=== PATIENT | male | born 1955 | race Caucasian/White ===

== ENCOUNTER 2017-03-11 09:41 | Inpatient (IN) | payer OTHER ==
[~2017-03-11] VITALS: Ht 172.7 cm; Wt 112.9 kg
--- NOTE | ~2017-03-11 | HC ---
[facility] [place] [address] CONSULTATION Name: ALIZA AKERS Room #: 419-P [facility] IN M.R.#: [id number] Admission: 03/11/17 Attend Phys: Coy Lema MD Discharge: Date of : 53 Report #: [id number] THIS REPORT FOR: //name// CC: Tai Lema REASON FOR CONSULTATION: Elevated creatinine. REASON FOR PRESENTATION: Weakness and tremor. HISTORY OF PRESENT ILLNESS: The patient is a 62-year-old with past medical history of diabetes mellitus and hypertension, coronary artery disease status post 8 stents as he stated. He is also known to have bipolar disorder and maintained on numerous medications. He does not really know what his baseline kidney function is. However, he tells me that he has been in [facility] facility for tremor and was told that he had some acute kidney injury. He was discharged after resolution of his acute kidney injury despite the fact that he continues to have tremor. He is not able to provide me with further details about that hospitalizations and no records are available. He has been diabetic for 16 years. He does not recall that he had diabetic retinopathy; however, he does have diabetic neuropathy. He is maintained on an angiotensin receptor belkys. He is also maintained on prednisone for unclear reasons to me. He was visiting with his primary care physician yesterday and while getting out of his clinic, he started to have weakness, diffuse body tremor, and was helped by the nursing aides to come to the emergency room for further evaluation and management. Initial laboratory values on presentation revealed that his creatinine was 2.2 with unknown baseline as I have stated. I am being consulted to manage his kidney injuries. The last creatinine we have in our system here was back in 2014 and this was at 1.4. PAST MEDICAL HISTORY: 1. Diabetes mellitus. 2. Hypertension. 3. Coronary artery disease. 4. Tremor. 5. Bipolar disorder. 6. Peripheral diabetic neuropathy. 7. Hyperlipidemia. 8. Chronic pain. PAST SURGICAL HISTORY: 1. Cholecystectomy. 2. Thyroidectomy. 3. Right shoulder surgery. 4. Left knee replacement. 5. Multiple caths. [facility] [address] [place] [address] CONSULTATION Name: ALIZA AKERS Room #: 419-P [facility] IN ..#: [id number] Admission: 03/11/17 Attend Phys: Coy Lema MD Discharge: Date of : 53 Report #: [id number] ALLERGIES: PENICILLIN. SOCIAL HISTORY: He denies drug or alcohol abuse. He is a former smoker. He quit about a year ago. FAMILY HISTORY: Significant for hypertension and diabetes mellitus in both parents. MEDICATIONS: Reported medications include the followin. Plavix. 2. Ranexa. 3. Aspirin. 4. Carvedilol. 5. Lasix. 6. Lyrica. 7. Seroquel. 8. Imdur. 9. Depakote. 10. Atorvastatin. 11. Allopurinol. 12. Fenofibrate. 13. Insulin. 14. Losartan. 15. Prednisone. 16. Pantoprazole. 17. Promethazine. 18. Flomax. REVIEW OF SYSTEMS: GENERAL: No fever or chills. CARDIOVASCULAR: No chest pain or palpitation. PULMONARY: No cough or hemoptysis. GASTROINTESTINAL: As per the history of present illness. GENITOURINARY: As per the history of present illness. NEUROLOGIC: As per the history of present illness. PHYSICAL EXAMINATION: GENERAL: He is alert, oriented, in no apparent distress. VITAL SIGNS: Blood pressure 129/66. NEUROLOGIC: He has tremor all over including upper extremities and lower extremities. HEAD AND NECK: No jugular venous distention, no bruit, no thyromegaly. CHEST: Clear to auscultation bilaterally. CARDIOVASCULAR: Regular with no rub detected. ABDOMEN: Soft, nontender with no hepatosplenomegaly. Bladder is not felt. EXTREMITIES: Lower extremities, no edema. [address] [address] CONSULTATION Name: ALIZA AKERS Room #: 419-P [facility] IN [facility]#: [id number] Admission: 03/11/17 Attend Phys: Coy Lema MD Discharge: Date of : 53 Report #: [id number] LABORATORY VALUES: Reviewed. BUN is up to 54, creatinine is 2.7, blood sugar is 381. Phosphorous 4.6, albumin is 3.3. Hemoglobin 12.3. Urine not available. Ultrasound reviewed. There is an evidence of chronic medical renal disease with increased echogenicity. There is also some thinning of the cortices. ASSESSMENT, IMPRESSION, AND PLAN: 1. Chronic kidney disease. 2. Acute kidney injury. 3. Diabetes mellitus. 4. Hypertension. 5. Tremor. 6. Polypharmacy. 7. Worsening of the renal function this morning is due to Toradol, please try to avoid. 8. I will send appropriate acute kidney injury, chronic kidney disease workup. 9. Obtain his [facility] record. 10. Avoid nephrotoxins. 11. Evaluate urine protein to creatinine. 12. The patient is on numerous medications with significant polypharmacy issues and this needs to be addressed. 13. Strict input and output. 14. We will continue to follow along. <ELECTRONICALLY SIGNED> By: Jenna Carver MD 03/14/17 1505 [id number] 1227 Jenna Carver MD /nt
--- NOTE | ~2017-03-11 | CNG ---
[facility] [place] [address] CYTO-NONGYN REPORT PROCEDURE Name: OSWALD,SANJIV Shah Room #: 352-P ADM IN M.R.#: [id number] Admission: 03/11/17 Date of : 53 Discharge: Report #: [id number] Path Case #: [id number] CYTOPATHOLOGY REPORT COLLECTION DATE: 03/18/2017 RECEIVED DATE: 03/22/2017 SUBMITTING PHYS: Dr. Gamal Sebastian OTHER PHYS: Dr. Coy Galvez CLINICAL HISTORY: ARF, hyperkalemia, tremors, bronchitis SPECIMEN(S) RECEIVED: A.Sputum Cytology * * * * * * * * * * * * FINAL DIAGNOSIS: A. Sputum Cytology: - No malignant epithelial cells identified. Rare pulmonary macrophages and occasional normal squamous epithelial cells present amongst abundant acute inflammatory cells. PATHOLOGIST: Chelsey Rodrigues M.D. REPORT ELECTRONICALLY SIGNED BY: Chelsey Rodrigues M.D. DATE/TIME: 03/23/2017 12:12 * * * * * * * * * * * * GROSS PATHOLOGY: A. Sputum Cytology: The specimen is submitted unfixed, labeled "Sanjiv Akers". Received by the Cytology Department is three mL of cloudy caruso fluid. One ThinPrep slide was prepared. (lg1.) DISTRIBUTOR CLEANER(S): DARBY Mcintosh(ASCP) INITIAL CPT CODE(S): A; 94811 Professional services performed by [facility] at [facility] [address], [place] [address] Technical services performed by [facility] at [address] [place] [address]., [address], [place] [address]. [facility] [address] [place] [address], [facility] [[email or web address] [address] [place], [place] [address] [place] [address] [place] [address] CYTO-NONGYN REPORT PROCEDURE Name: SANJIV AKERS Room #: 352-P ADM IN M.R.#: [id number] Admission: 03/11/17 Date of : 53 Discharge: Report #: [id number] Path Case #: [id number] PHONE: [phone] DIRECTOR: Pk Buckley M.D. * * * END OF REPORT * * *
--- NOTE | ~2017-03-11 | HC ---
[facility] [place] [address] CONSULTATION Name: OSWALDALIZA Pablo Room #: 419-P [facility] IN M.R.#: [id number] Admission: 03/11/17 Attend Phys: Coy Lema MD Discharge: Date of : 53 Report #: [id number] THIS REPORT FOR: //name// CC: Tai Lema DATE OF SERVICE: 03/13/2017 HISTORY OF PRESENT ILLNESS: This is a 62-year-old male patient who was seen by me yesterday as well as today. This is a combined note. The patient's neurological consult was requested because of tremor. History is somewhat poorly defined in this patient, but it looks like he has this tremor going on for at least a few months. He has been to [facility] and [facility] and he saw a neurologist there. He does not know what the diagnosis was and what treatment they recommended. This tremor is severe. It is predominantly involving both lower extremities. It happens when he tries to stand up. When is sitting down, he is okay. He does not know any other aggravating or relieving factor. This tremor has started without any factors like head trauma, etc. REVIEW OF SYSTEMS: Pretty extensive in this patient. This patient had a cardiac stent put in. He has a history of diabetes and hypertension. He indicates he cannot have an MRI because he has a metal stuck in his eye. He has a history of bipolar disorder. He does not think any medication make it worse. He has been admitted this time with renal problem. He has a history of shortness of breath. He also says that he has a history of DVT. He is being followed by [facility], but he is not sure whether his tremor is any worse than it was before the renal problem started. This was his relevant 14-point review of system. PAST MEDICAL HISTORY: Positive for coronary artery disease. FAMILY HISTORY: Negative for any Parkinson disease the best I can tell. SOCIAL HISTORY: Indicated he does not smoke or drink alcohol. PHYSICAL EXAMINATION: The patient's examination was carried out yesterday and today. The patient is alert and responsive. He can follow simple command. He is oriented. He believes his speech, concentration, fund of knowledge and memory is at baseline. Cranial nerve examination 2-12 looks unremarkable. He has symmetrical strength, sensation, reflexes and tone in all four extremities. His reflexes are diminished, but that is expected with diabetes. He does not appear to have much cerebellar sign, but he does have tremor, especially have he tries to sit up and especially in his legs. He does have some tremor in his arms also. He is a heavy set individual who does not have any dysmorphic features of eyes, ears and face. His hearing and vision looks adequate. He [facility] [address] [place] [address] CONSULTATION Name: OSWALD,ALIZA Shah Room #: 419-P [facility] IN M.R.#: [id number] Admission: 03/11/17 Attend Phys: Coy Lema MD Discharge: Date of : 53 Report #: [id number] does not have any thyroid mass or any carotid bruit. Cardiac examination is unremarkable. No respiratory difficulty was noticed. Blood pressure is 100/60, pulse is 69, and temperature is 97.5. LABORATORY DATA: Multiple labs are abnormal including his BUN and creatinine. He did not have any imaging study. IMPRESSION: I discussed with the patient that one of the diagnosis which need to be considered in him is primary orthostatic tremor. This is a rare diagnosis and for that he should see a movement disorder specialist. This is mainly a diagnosis of exclusion. Not many testing can be done on, but I will suggest getting a CT scan of the head done because MRI cannot be done. His last TSH was done in 2014, so I will repeat that. I discussed the treatment with him. I told him that clonazepam and gabapentin are the two common medications, which are used for it. I will give him a trial with clonazepam. I discussed the potential side effects of clonazepam with this patient and he understands it very well. He wants to try that. I will not try him on gabapentin because of his renal problems at the moment. Further treatment will be deferred to the movement disorder specialist. RECOMMENDATION: 1. Noncontrast CT of the head. 2. TSH. 3. Vitamin B12. 4. Trial with clonazepam. 5. This is a rare disorder and it is a subjective diagnosis whenever primary orthostatic hypotension is diagnosed and I will suggest an appointment with a movement disorder specialist as an outpatient and I gave him the number for that. Between yesterday and today, more than 50 minutes of time was spent taking care of this patient today and majority of that time was spent counseling this patient about the diagnosis and potential treatment and side effect and coordinating his care. I will follow up this patient p.r.n. only, but please call if further followup is needed in this patient. <ELECTRONICALLY SIGNED> By: Nav Méndez MD 03/17/17 0731 1837 [id number] Nav Méndez MD /nt
--- NOTE | ~2017-03-11 | EKG ---
[address] [address] ELECTROCARDIOGRAM REPORT Name: ALIZA AKERS Room #: 419-P ADM IN M.R.#: [id number] Admission: 03/11/17 Attend Phys: Coy Lema MD Discharge: Date of : 53 Report #: [id number] THIS REPORT FOR: //name// 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
[~2017-03-11 09:41] MED LIST: ASPIR 8181 M1 PO; CARVEDILOL12.5 MG PO; CLONAZEPAM 1 MG1 M1 PO; DEPAKOTE ER500 MG PO; IMDUR 60 MG TAB60 M1 PO; LASIX 40 MG TAB40 M2 PO; LYRICA 50 MG50 MG PO; MAGNESIUM250 M1 PO; NITROSTAT0.4 M1 SL; NOVOLIN 70100 UNIT/5 PO; NOVOLOG100 UNIT/1 PO; PEPCID20 MG PO; PLAVIX 75 MG TA75 M1 PO; RANEXA500 MG PO; ROBAXIN 750 MG750 M1 PO; SEROQUEL 100 M100 MG PO; SIMVASTATIN40 MG PO
[2017-03-11 10:38] VITALS: BP 101/71
[2017-03-11 11:35] LABS: HEMOGLOBIN 12.3 gm/dL (14.0-18.0); MCH 29.3 pg (26.0-34.0); MCHC 34.1 g/dL (28.0-37.0); MCV 86.1 fL (80.0-100.0); RBC 4.18 mil/uL (4.50-6.00); RDW 14.8 % (10.5-14.5); WBC 5.8 thou/uL (4.0-11.0)
[2017-03-11 11:42] LABS: ANION GAP 11 mmol/L (7-16); BUN 49 mg/dL (7-18); CHLORIDE 96 mmol/L (98-107); CO2 28 mmol/L (21-32); CREATININE 2.2 mg/dL (0.7-1.3); GLUCOSE 309 mg/dL (74-106); POTASSIUM 5.5 mmol/L (3.5-5.1); SODIUM 135 mmol/L (136-145)
[2017-03-11 11:51] LABS: TROPONIN-I < 0.04 ng/mL (<0.06)
[2017-03-11] MEDS ORDERED: ALLOPURINOL 10100 M1 PO (13:09)
[2017-03-11] MEDS ORDERED: LIPITOR80 MG PO ×2 (13:09→14:18)
[2017-03-11 13:36] VITALS: BP 116/67
[2017-03-11 13:38] VITALS: BP 122/62
[2017-03-11 13:51] VITALS: BP 122/62
[2017-03-11] MEDS ORDERED: BREO ELLIPTA 21 EACH INH (13:58)
[2017-03-11] MEDS ORDERED: ARNUITY ELLIP200 MCG INH (14:00)
[2017-03-11] MEDS ORDERED: XANAX 0.25 MG0.25 MG PO (14:01)
[2017-03-11] MEDS ORDERED: FENOFIBRATE160 MG PO (14:02)
[2017-03-11] MEDS ORDERED: NORCO 5-325 TA1 EACH PO (14:03)
[2017-03-11] MEDS ORDERED: HUMALOG100 UNIT/1 SUBQ (14:04)
[2017-03-11] MEDS ORDERED: COZAAR 25 MG TA25 M1 PO (14:05)
[2017-03-11] MEDS ORDERED: PREDNISONE 10 M10 MG PO (14:06)
[2017-03-11] MEDS ORDERED: LEVEMIR SUBQ (14:07)
[2017-03-11] MEDS ORDERED: PROTONIX40 M1 PO (14:08)
[2017-03-11] MEDS ORDERED: DUONEB 2.5-0.5 M3 ML INH (14:08)
[2017-03-11] MEDS ORDERED: MIRALAX17 GM PO (14:09)
[2017-03-11] MEDS ORDERED: PHENERGAN 25 MG25 MG PO (14:10)
[2017-03-11] MEDS ORDERED: RANEXA500 MG PO (14:11)
[2017-03-11] MEDS ORDERED: FLOMAX0.4 MG PO (14:12)
[2017-03-11] MEDS ORDERED: VENTOLIN HFA 1818 GM INH (14:12)
[2017-03-11] MEDS ORDERED: PLAVIX 75 MG TA75 MG PO (14:21)
[2017-03-11 16:02] VITALS: BP 128/75
[2017-03-11 16:57] VITALS: BP 131/82
[2017-03-12] VITALS (8 sets, daily range): BP systolic 109–125; BP diastolic 57–74
[2017-03-12 08:13] LABS: CREATININE 2.7 mg/dL (0.7-1.3); POTASSIUM 4.9 mmol/L (3.5-5.1)
[2017-03-12 08:18] LABS: ALBUMIN 3.3 g/dL (3.4-5.0); PHOSPHORUS 4.6 mg/dL (2.5-4.9)
[2017-03-13 03:56] LABS: ABSOLUTE NEUTROPHILS 6.2 thou/uL (1.4-8.2); BASOPHILS 0.2 % (0.0-2.0); LYMPHOCYTES 7.7 % (24.0-44.0); MCH 29.7 pg (26.0-34.0); MCHC 34.4 g/dL (28.0-37.0); MCV 86.3 fL (80.0-100.0); MONOCYTES 4.9 % (1.0-8.0); PLATELET COUNT 219 thou/uL (150-400); POLYS 87.2 % (36.0-66.0); RBC 3.35 mil/uL (4.50-6.00); RDW 14.6 % (10.5-14.5); WBC 7.1 thou/uL (4.0-11.0)
[2017-03-13 04:04] LABS: ALBUMIN 2.9 g/dL (3.4-5.0); CALCIUM 7.5 mg/dL (8.5-10.1); CREATININE 2.4 mg/dL (0.7-1.3); MAGNESIUM 1.5 mg/dL (1.8-2.4); PHOSPHORUS 4.5 mg/dL (2.5-4.9); POTASSIUM 4.4 mmol/L (3.5-5.1)
[2017-03-13 04:20] VITALS: BP 137/78
[2017-03-13 07:50] VITALS: BP 136/83
[2017-03-13 10:46] LABS: HEMATOCRIT 29.1 % (42.0-52.0); HEMOGLOBIN 10.1 gm/dL (14.0-18.0); MCH 29.9 pg (26.0-34.0); MCHC 34.7 g/dL (28.0-37.0); MCV 86.3 fL (80.0-100.0); RBC 3.37 mil/uL (4.50-6.00); RDW 14.3 % (10.5-14.5)
[2017-03-13 11:13] LABS: ALBUMIN 2.8 g/dL (3.4-5.0); CALCIUM 7.2 mg/dL (8.5-10.1); CREATININE 2.2 mg/dL (0.7-1.3); POTASSIUM 4.4 mmol/L (3.5-5.1); TOTAL BILIRUBIN 0.3 mg/dL (<0.1-1.0); TOTAL PROTEIN 5.8 g/dL (6.4-8.2)
[2017-03-13 15:50] VITALS: BP 100/60
[2017-03-13 19:51] VITALS: BP 118/63
[2017-03-14 04:00] VITALS: BP 133/85
[2017-03-14 08:00] VITALS: BP 121/75
[2017-03-14 15:45] LABS: ALBUMIN 3.3 g/dL (3.4-5.0); CALCIUM 7.9 mg/dL (8.5-10.1); CREATININE 1.9 mg/dL (0.7-1.3); PHOSPHORUS 3.5 mg/dL (2.5-4.9); POTASSIUM 3.9 mmol/L (3.5-5.1)
[2017-03-14 16:00] VITALS: BP 98/66
[2017-03-14 17:53] LABS: BE(vivo) 3.9 mmol/L (-2 to +3); HCO3 28.5 mmol/L (22.0-26.0); PCO2 42.9 mmHg (35.0-45.0); pH 7.441 (7.360-7.450); sO2 89.7 % (92.0-98.0)
[2017-03-14 17:54] LABS: PO2 55.1 mmHg (80.0-100.0)
[2017-03-14 18:03] LABS: URINE BILIRUBIN NEGATIVE (Negative); URINE BLOOD NEGATIVE (Negative); URINE CLARITY CLEAR; URINE COLOR YELLOW; URINE CREATININE-RANDOM* 23.4 mg/dL; URINE GLUCOSE-RANDOM* TRACE (Negative); URINE KETONES NEGATIVE (Negative); URINE LEUKOCYTES NEGATIVE (Negative); URINE NITRITE NEGATIVE (Negative); URINE PROTEIN (DIPSTICK) NEGATIVE (Negative); URINE PROTEIN-RANDOM* < 6.0 mg/dL (<11.9); URINE SODIUM-RANDOM* 59 mmol/L; URINE UROBILINOGEN 0.2 E.U./dl (0.2-1.0)
[2017-03-14 20:00] VITALS: BP 145/77
[2017-03-15 04:30] VITALS: BP 106/66
[2017-03-15 06:20] LABS: CALCIUM 7.6 mg/dL (8.5-10.1); CREATININE 2.2 mg/dL (0.7-1.3); POTASSIUM 3.8 mmol/L (3.5-5.1); TOTAL BILIRUBIN 0.3 mg/dL (<0.1-1.0); TOTAL PROTEIN 6.4 g/dL (6.4-8.2)
[2017-03-15 07:15] VITALS: BP 117/67
[2017-03-15 14:45] VITALS: BP 103/63
[2017-03-15 19:17] VITALS: BP 106/69
[2017-03-16 03:30] VITALS: BP 125/82
[2017-03-16 06:58] LABS: ALBUMIN 2.7 g/dL (3.4-5.0); CALCIUM 8.1 mg/dL (8.5-10.1); CREATININE 1.6 mg/dL (0.7-1.3); PHOSPHORUS 4.2 mg/dL (2.5-4.9)
[2017-03-16 07:01] LABS: POTASSIUM 4.9 mmol/L (3.5-5.1)
[2017-03-16 07:14] VITALS: BP 130/74
[2017-03-16 15:01] VITALS: BP 123/74
[2017-03-16 19:25] VITALS: BP 146/119
[2017-03-17 03:10] VITALS: BP 154/86
[2017-03-17 04:42] LABS: CALCIUM 7.9 mg/dL (8.5-10.1); CREATININE 1.6 mg/dL (0.7-1.3); POTASSIUM 4.4 mmol/L (3.5-5.1)
[2017-03-17 08:00] VITALS: BP 143/73
[2017-03-17 15:15] VITALS: BP 122/73
[2017-03-17 19:44] VITALS: BP 123/72
[2017-03-18 00:04] LABS: BE(vivo) 4.3 mmol/L (-2 to +3); HCO3 27.7 mmol/L (22.0-26.0); PO2 76.9 mmHg (80.0-100.0); pH 7.492 (7.360-7.450); sO2 96.3 % (92.0-98.0)
[2017-03-18 01:08] VITALS: BP 131/92
[2017-03-18 03:47] VITALS: BP 137/87
[2017-03-18 04:57] LABS: HEMATOCRIT 34.1 % (42.0-52.0); HEMOGLOBIN 11.4 gm/dL (14.0-18.0); MCH 28.8 pg (26.0-34.0); MCHC 33.6 g/dL (28.0-37.0); MCV 85.8 fL (80.0-100.0); PLATELET COUNT 299 thou/uL (150-400); RBC 3.97 mil/uL (4.50-6.00); WBC 6.5 thou/uL (4.0-11.0)
[2017-03-18 06:01] LABS: ABSOLUTE NEUTROPHILS 5.5 thou/uL (1.4-8.2); PROMYELOCYTES 1 %
[2017-03-18 08:30] VITALS: BP 151/95
[2017-03-18 15:32] VITALS: BP 137/76
[2017-03-18 19:18] VITALS: BP 144/72
[2017-03-19 04:00] VITALS: BP 136/57
[2017-03-19 06:21] VITALS: BP 151/87
[2017-03-19 06:22] LABS: HEMATOCRIT 35.6 % (42.0-52.0); MCHC 33.8 g/dL (28.0-37.0); MCV 85.8 fL (80.0-100.0); PLATELET COUNT 324 thou/uL (150-400); RBC 4.15 mil/uL (4.50-6.00); RDW 14.8 % (10.5-14.5); WBC 8.1 thou/uL (4.0-11.0)
[2017-03-19 06:30] LABS: BE(vivo) 5.4 mmol/L (-2 to +3); HCO3 28.2 mmol/L (22.0-26.0); PCO2 35.2 mmHg (35.0-45.0); PO2 64.8 mmHg (80.0-100.0); pH 7.521 (7.360-7.450); sO2 94.7 % (92.0-98.0)
[2017-03-19 06:35] LABS: CALCIUM 8.5 mg/dL (8.5-10.1); CREATININE 1.3 mg/dL (0.7-1.3); POTASSIUM 4.2 mmol/L (3.5-5.1)
[2017-03-19 07:04] LABS: ABSOLUTE NEUTROPHILS 5.8 thou/uL (1.4-8.2); ANISOCYTOSIS SLIGHT; PLATELET ESTIMATE NORMAL
[2017-03-19 07:15] VITALS: BP 146/90
[2017-03-19 16:29] VITALS: BP 125/70
[2017-03-19 20:00] VITALS: BP 125/82
[2017-03-20 04:22] VITALS: BP 148/70
[2017-03-20 06:27] LABS: HEMATOCRIT 34.3 % (42.0-52.0); HEMOGLOBIN 11.7 gm/dL (14.0-18.0); MCH 29.3 pg (26.0-34.0); MCHC 34.1 g/dL (28.0-37.0); PLATELET COUNT 256 thou/uL (150-400); RBC 3.99 mil/uL (4.50-6.00); RDW 15.1 % (10.5-14.5); WBC 7.3 thou/uL (4.0-11.0)
[2017-03-20 06:40] LABS: CALCIUM 8.1 mg/dL (8.5-10.1); CREATININE 1.6 mg/dL (0.7-1.3); POTASSIUM 4.4 mmol/L (3.5-5.1)
[2017-03-20 08:03] LABS: ABSOLUTE NEUTROPHILS 6.3 thou/uL (1.4-8.2); METAMYELOCYTES 1 %; MYELOCYTES 1 %
[2017-03-20 08:04] LABS: PLATELET ESTIMATE NORMAL
[2017-03-20 12:03] VITALS: BP 157/74
[2017-03-20 16:08] VITALS: BP 151/83
[2017-03-20 19:20] VITALS: BP 143/82
[2017-03-21 03:15] VITALS: BP 151/87
[2017-03-21 09:00] VITALS: BP 171/90
[2017-03-21 11:12] VITALS: BP 159/91
[2017-03-21 17:07] VITALS: BP 161/82
[2017-03-21 19:41] VITALS: BP 157/83
[2017-03-22 04:00] VITALS: BP 146/81
[2017-03-22 07:37] VITALS: BP 177/95
[2017-03-22 11:28] VITALS: BP 128/68
[2017-03-22 13:10] LABS: ANA INTERPRETATION Negative (Negative)
[2017-03-22 15:58] VITALS: BP 113/68
[2017-03-22 19:10] VITALS: BP 96/62
[2017-03-23 02:08] LABS: ADENOVIRUS Negative (Negative); INFLUENZA A Negative (Negative); INFLUENZA B Negative (Negative); METAPNEUMOVIRUS Negative (Negative); PARAINFLUENZA 1 Negative (Negative); PARAINFLUENZA 2 Negative (Negative); PARAINFLUENZA 3 Negative (Negative); RHINOVIRUS Negative (Negative); RSV A Negative (Negative); RSV B Negative (Negative)
[2017-03-23 03:30] VITALS: BP 134/84
[2017-03-23 07:24] VITALS: BP 123/61
[2017-03-23 08:17] LABS: HEMATOCRIT 33.9 % (42.0-52.0); HEMOGLOBIN 11.3 gm/dL (14.0-18.0); MCH 28.9 pg (26.0-34.0); MCHC 33.3 g/dL (28.0-37.0); MCV 86.7 fL (80.0-100.0); PLATELET COUNT 322 thou/uL (150-400); RDW 14.8 % (10.5-14.5); WBC 8.3 thou/uL (4.0-11.0)
[2017-03-23 08:32] LABS: CALCIUM 8.3 mg/dL (8.5-10.1); CREATININE 1.1 mg/dL (0.7-1.3); POTASSIUM 4.8 mmol/L (3.5-5.1)
[2017-03-23 09:03] LABS: ABSOLUTE NEUTROPHILS 6.5 thou/uL (1.4-8.2); METAMYELOCYTES 1 %; MYELOCYTES 1 %; PLATELET ESTIMATE NORMAL
[2017-03-23 12:55] VITALS: BP 118/70
[2017-03-23 17:46] VITALS: BP 113/69
[2017-03-23 19:25] VITALS: BP 113/70
[2017-03-24 03:20] VITALS: BP 145/91
[2017-03-24 08:14] VITALS: BP 141/83
[2017-03-24] MEDS ORDERED: BIPAP MISCELL (09:28)
[2017-03-24] MEDS ORDERED: OXYGEN MISCELL (09:28)
[2017-03-24 09:45] VITALS: BP 141/83
[2017-03-24 11:50] VITALS: BP 141/83
== END 2017-03-24 14:20 | disposition home health service (06) | DRG 177 ==
LOC: ER 09:41 → EROBS 12:56 → ER 12:56 → 4E 12:56 → 3W 03-19 16:09
PROVIDERS: Emergency Medicine; Family Medicine; Hospitalist; Internal Medicine; Internal Medicine Nephrology; Internal Medicine Pulmonary Disease; Nurse Practitioner Acute Care
PROC: 5A09357 Assistance with Respiratory Ventilation, Less than 24 Consecutive Hours, Continuous Positive Airway Pressure (ICD-10-PCS; principal; 2017-03-19)
PROC: 5A09357 Assistance with Respiratory Ventilation, Less than 24 Consecutive Hours, Continuous Positive Airway Pressure (ICD-10-PCS; 2017-03-20)
PROC: 5A09357 Assistance with Respiratory Ventilation, Less than 24 Consecutive Hours, Continuous Positive Airway Pressure (ICD-10-PCS; 2017-03-21)
PROC: 5A09357 Assistance with Respiratory Ventilation, Less than 24 Consecutive Hours, Continuous Positive Airway Pressure (ICD-10-PCS; 2017-03-22)
DX: J69.0 Pneumonitis due to inhalation of food and vomit (principal); J96.01 Acute respiratory failure with hypoxia; N17.9 Acute kidney failure, unspecified; J44.1 Chronic obstructive pulmonary disease with (acute) exacerbation; J20.9 Acute bronchitis, unspecified; E87.5 Hyperkalemia; Z96.652 Presence of left artificial knee joint; I25.10 Atherosclerotic heart disease of native coronary artery without angina pectoris; E78.5 Hyperlipidemia, unspecified; F31.9 Bipolar disorder, unspecified; R25.1 Tremor, unspecified; E11.42 Type 2 diabetes mellitus with diabetic polyneuropathy; G89.29 Other chronic pain; E89.0 Postprocedural hypothyroidism; N18.9 Chronic kidney disease, unspecified; E11.22 Type 2 diabetes mellitus with diabetic chronic kidney disease; E86.0 Dehydration; E11.65 Type 2 diabetes mellitus with hyperglycemia; Z66 Do not resuscitate; I12.9 Hypertensive chronic kidney disease with stage 1 through stage 4 chronic kidney disease, or unspecified chronic kidney disease; E66.9 Obesity, unspecified; T39.8X5A Adverse effect of other nonopioid analgesics and antipyretics, not elsewhere classified, initial encounter; Z79.4 Long term (current) use of insulin; Z79.899 Other long term (current) drug therapy; Z79.82 Long term (current) use of aspirin; Z95.5 Presence of coronary angioplasty implant and graft; Z88.0 Allergy status to penicillin; Z87.891 Personal history of nicotine dependence; Z90.49 Acquired absence of other specified parts of digestive tract; Z82.49 Family history of ischemic heart disease and other diseases of the circulatory system; Z83.3 Family history of diabetes mellitus; Z86.718 Personal history of other venous thrombosis and embolism; Z68.37 Body mass index [BMI] 37.0-37.9, adult
CPT/HCPCS: 10183; 10879

== ENCOUNTER → 2017-04-05 | Outpatient (CLI) | payer OTHER ==
[~2017-04-05] MED LIST changes: +ALLOPURINOL 10100 M1 PO; +ARNUITY ELLIP200 MCG INH; +BIPAP MISCELL; +BREO ELLIPTA 21 EACH INH; +COZAAR 25 MG TA25 M1 PO; +DUONEB 2.5-0.5 M3 ML INH; +FENOFIBRATE160 MG PO; +FLOMAX0.4 MG PO; +HUMALOG100 UNIT/1 SUBQ; +LEVEMIR SUBQ; +LIPITOR80 MG PO; +MIRALAX17 GM PO; +NORCO 5-325 TA1 EACH PO; +OXYGEN MISCELL; +PHENERGAN 25 MG25 MG PO; +PLAVIX 75 MG TA75 MG PO; +PREDNISONE 10 M10 MG PO; +PROTONIX40 M1 PO; +VENTOLIN HFA 1818 GM INH; +XANAX 0.25 MG0.25 MG PO
== END ==
LOC: SLEEPLAB 19:03
DX: G47.33 Obstructive sleep apnea (adult) (pediatric) (principal)